=== PATIENT | female | born 1955 ===

== ENCOUNTER 2020-07-27 06:34 | Day surgery (SDC) | payer BC ==
[~2020-07-27 06:34] MED LIST: Lactated Ringers 1,000 ML IV SCH
[2020-07-27] MEDS ORDERED: Midazolam 1 MG/ML 2 ML SDV ONE (07:11)
[2020-07-27] MEDS ORDERED: Propofol 200 MG/20 ML SDV ONE (07:11)
--- NOTE | 2020-07-27 07:23 | PCM.PREANE ---
Preanesthetic Assessment - Anesthesia/Transfusion/Family Hx Anesthesia History: Prior Anesthesia Without Reaction Family History of Anesthesia Reaction: No Transfusion History: No Prior Transfusion(s) - Review of Systems General: No Symptoms Pulmonary: No Symptoms Cardiovascular: No Symptoms Gastrointestinal: No Symptoms Neurological: No Symptoms Other: Reports: None - Physical Assessment NPO Status Date: 07/27/20 NPO Status Time: 00:05 Vital Signs: Last Vital Signs Temp 97.2 F 07/27/20 06:51 Pulse 55 L 07/27/20 06:51 Resp 16 07/27/20 06:51 BP 134/67 07/27/20 06:51 Pulse Ox 98 07/27/20 06:51 Height: 5 ft 5 in Weight: 153 lb ASA Class: 3 Mental Status: Alert & Oriented x3 Airway Class: Mallampati = 2 Dentition: Reports: Normal Dentition, Dentures ROM/Head Extension: Full Lungs: Clear to Auscultation, Normal Respiratory Effort Cardiovascular: Regular Rate, Regular Rhythm - Allergies Allergies/Adverse Reactions: Allergies Allergy/AdvReac Type Severity Reaction Status Date / Time codeine Allergy Nausea and Verified 07/27/20 07:15 [From Tylenol-Codeine #3] Vomiting erythromycin base Allergy Nausea and Verified 07/27/20 07:15 Vomiting levofloxacin [From Levaquin] Allergy Nausea and Verified 07/27/20 07:15 Vomiting oxycodone Allergy Nausea and Verified 07/27/20 07:15 Vomiting Penicillins Allergy Rash Verified 07/27/20 07:15 - Anesthesia Plan Pre-Op Medication Ordered: None - Acknowledgements Anesthesia Type Planned: General Anesthesia Pt an Appropriate Candidate for the Planned Anesthesia: Yes Alternatives and Risks of Anesthesia Discussed w Pt/Guardian: Yes Pt/Guardian Understands and Agrees with Anesthesia Plan: Yes Additional Comments: npo after mn htn AR with 3 cardiac stents 2001 last plavix last monday no cp, sob, or palmer sophie tob none etoh nono now hx abuse upper and lower dentures par no questions PreAnesthesia Questionnaire HEENT History: Reports: Other (See Below) Other HEENT History: wears glasses, has upper and loser dentures Cardiovascular History: Reports: High Cholesterol, Hypertension, AR Other Cardiovascular History: AR in 2001- denies chest pain and SOB Respiratory History: Reports: None Gastrointestinal History: Reports: GERD, PUD Other Gastrointestinal History: hx gastric ulcer Genitourinary History: Reports: None [employer] History: Reports: Musculoskeletal History: Reports: Arthritis Other Musculoskeletal History: has arthritis in knees Neurological History: Reports: None Psychiatric History: Reports: Other (See Below) Other Psychiatric History: is Claustrophobic Endocrine/Metabolic History: Reports: Obesity/BMI 30+ Hematologic History: Reports: Anemia Immunologic History: Reports: None Oncologic (Cancer) History: Reports: None Dermatologic History: Reports: None - Past Surgical History Head Surgeries/Procedures: Reports: None Cardiovascular Surgical History: Reports: Coronary Artery Stent Other Cardiovascular Surgeries/Procedures: 3 stents placed approx. 1 year after AR GI Surgical History: Reports: Bariatric Procedure, Cholecystectomy, EGD Female Surgical History: Reports: Hysterectomy - SUBSTANCE USE Tobacco Use Status *Q: Former Tobacco User Tobacco Use Within Last Twelve Months: No Recreational Drug Use History: No - HOME MEDS Home Medications: Home Meds Calcium Carbonate/Vitamin D3 [Calcium 600-Vit D3 400 Tablet] 1 tab PO DAILY 02/24/16 [History] Cholecalciferol (Vitamin D3) [Vitamin D3] 2,000 units PO DAILY 02/24/16 [History] Clopidogrel Bisulfate [Plavix] 75 mg PO DAILY 02/24/16 [History] DULoxetine HCl [Cymbalta] 30 mg PO BID 02/24/16 [History] Enalapril Maleate 10 mg PO QAM 02/24/16 [History] Ferrous Sulfate [Iron] 325 mg PO DAILY 02/24/16 [History] Metoprolol Succinate 100 mg PO BID 02/24/16 [History] Simvastatin [Zocor] 40 mg PO DAILY 02/24/16 [History] Sucralfate [Carafate] 10 mg PO BID PRN 02/24/16 [History] amLODIPine Besylate [Amlodipine Besylate] 5 mg PO QAM 02/24/16 [History] Acetaminophen/Diphenhydramine [Acetaminophen Pm Caplet] 1 tab PO BEDTIME 07/24/20 [History] Omeprazole 20 mg PO DAILY 07/24/20 [History] - CURRENT (IN HOUSE) MEDS Current Meds: Current Medications Lactated Ringer's (Ringers, Lactated) 1,000 mls @ 125 mls/hr IV ASDIRECTED SCOUT Last Admin: 07/27/20 06:54 Dose: 125 mls/hr Documented by: Discontinued Medications Lactated Ringer's (Ringers, Lactated) 1,000 mls @ 125 mls/hr IV ASDIRECTED SCOUT Midazolam HCl (Midazolam 1 Mg/Ml 2 Ml Sdv) Confirm Administered Dose 2 mg .ROUTE .STK-MED ONE Stop: 07/27/20 07:12 Propofol (Propofol 200 Mg/20 Ml Sdv) Confirm Administered Dose 200 mg .ROUTE .STK-MED ONE Stop: 07/27/20 07:12
[2020-07-27] MEDS ORDERED: Lactated Ringers 1,000 ML IV SCH (08:30)
--- NOTE | 2020-07-27 08:32 | PCM.POSTAN ---
POST ANESTHESIA ASSESSMENT - MENTAL STATUS Mental Status: Alert, Oriented - VITAL SIGNS Vital Signs: Last Vital Signs Temp 97.2 F 07/27/20 06:51 Pulse 64 07/27/20 08:27 Resp 16 07/27/20 08:27 BP 140/70 07/27/20 08:27 Pulse Ox 98 07/27/20 08:27 - RESPIRATORY Respiratory Status: Respiratory Rate WNL, Airway Patent, O2 Saturation Stable - CARDIOVASCULAR CV Status: Pulse Rate WNL, Blood Pressure Stable - GASTROINTESTINAL GI Status: No Symptoms - POST OP HYDRATION Hydration Status: Adequate & Stable
--- NOTE | 2020-07-27 08:34 | PCM.OPNOTE ---
- General Post-Op/Procedure Note Date of Surgery/Procedure: 07/27/20 Operative Procedure(s): Esophagogastroduodenoscopy withh anastomotic biopsies Pre Op Diagnosis: Epigastric pain. Progressive heartburn. Unexplained weight loss. Post-Op Diagnosis: Mild chronic gastritis. Widely patent anastomosis. No esophageal stricture. Anesthesia Technique: MAC (ASA 3) Primary Surgeon: Vance Barragan Parking Lot Manager: Tabby Song Condition: Good Free Text/Narrative:: DICTATION 236339 CPT CODE 18408
[2020-07-27 08:39] VITALS: BP 152/68; PULSE 61
--- NOTE | 2020-07-27 08:56 | PCM48HPAN ---
Post Anesthesia Note - EVALUATION WITHIN 48HRS OF ANESTHETIC Vital Signs in Normal Range: Yes Patient Participated in Evaluation: Yes Respiratory Function Stable: Yes Airway Patent: Yes Cardiovascular Function Stable: Yes Hydration Status Stable: Yes Pain Control Satisfactory: Yes Nausea and Vomiting Control Satisfactory: Yes Mental Status Recovered: Yes Vital Signs: Last Vital Signs Temp 97.2 F 07/27/20 08:35 Pulse 61 07/27/20 08:35 Resp 14 07/27/20 08:35 BP 152/68 H 07/27/20 08:35 Pulse Ox 97 07/27/20 08:35
--- NOTE | 2020-07-27 09:34 | OR ---
SURGEON: Vance Barragan M.D. DATE OF PROCEDURE: 07/27/2020 OPERATION PERFORMED: Esophagogastroduodenoscopy with biopsy. PRIMARY SURGEON: Vance Barragan M.D. RADIO STATION MANAGER: optical assistant: DARIAN Levine student. ANESTHESIA: MAC. ASA CLASSIFICATION: III. PREOPERATIVE DIAGNOSES: Progressive epigastric pain with heartburn and unexplained weight loss. POSTOPERATIVE DIAGNOSES: Mild gastritis, widely patent anastomosis from her previous gastric bypass. DESCRIPTION OF PROCEDURE: The patient was taken to the endoscopy room and positioned on the endoscopy table in the supine position. Time-out was called for appropriate identification of the patient and procedure. Monitored anesthesia care was provided. The bite block was placed between the patient's teeth. The gastroscope was inserted through the bite block and advanced without difficulty through the esophagus into the gastric remnant and subsequently through the Santiago- en-Y anastomosis. The anastomosis was widely patent and showed no acute inflammatory changes or ulcerations. Anastomotic biopsies were obtained. The pouch was large enough that I was able to retroflex the gastroscope and reveal the GE junction, which showed no acute inflammatory changes or ulcerations. The gastroscope was then straightened and slowly withdrawn. The GE junction was well defined and showed no acute inflammatory changes. The esophagus itself demonstrated good contractility. No mid or proximal lesions were identified. Vocal cords were not visualized. The gastroscope was then removed with the patient having tolerated the procedure well. She was taken to recovery room in stable condition. REILLY / BRUCE /[id number] NARINDER
== END 2020-07-27 08:54 | disposition home or self-care (01) ==
LOC: MW.SDS 06:34
PROVIDERS: ATTEND Surgery
DX: K29.70 Gastritis, unspecified, without bleeding (principal); I10 Essential (primary) hypertension; F32.9 Major depressive disorder, single episode, unspecified; I25.10 Atherosclerotic heart disease of native coronary artery without angina pectoris; I25.2 Old myocardial infarction; E78.00 Pure hypercholesterolemia, unspecified; E66.9 Obesity, unspecified; Z98.0 Intestinal bypass and anastomosis status; Z88.0 Allergy status to penicillin; Z88.1 Allergy status to other antibiotic agents; Z88.5 Allergy status to narcotic agent; Z88.8 Allergy status to other drugs, medicaments and biological substances; Z79.899 Other long term (current) drug therapy; Z98.84 Bariatric surgery status; Z98.890 Other specified postprocedural states; Z90.49 Acquired absence of other specified parts of digestive tract; Z87.891 Personal history of nicotine dependence
CPT/HCPCS: 43239; 88305; J2250; J2704; J7120; 00731

== ENCOUNTER 2022-12-01 12:05 | Emergency (ER) | payer BC, MEDICARE ==
[2022-12-01] MEDS ORDERED: Lactated Ringers 1,000 ML IV SCH ×2 (12:30→13:00)
[2022-12-01 12:37] LABS: BASOPHILS PERCENT AUTO 0.4 % (0.0-1.5); EOSINOPHILS ABSOLUTE AUTO 0.4 K/uL (0.0-0.7); EOSINOPHILS PERCENT AUTO 3.4 % (0.0-7.0); HEMATOCRIT 48.3 % (36.0-46.0); HEMOGLOBIN 16.4 g/dL (12.0-16.0); LYMPHOCYTES ABSOLUTE AUTO 4.7 K/uL (0.6-2.4); LYMPHOCYTES PERCENT AUTO 42.2 % (16.0-40.0); MEAN CORPUSCULAR HEMOGLOBIN 29.5 pg (27.0-32.0); MONOCYTES ABSOLUTE AUTO 0.8 K/uL (0.0-0.8); MONOCYTES PERCENT AUTO 7.1 % (0.0-15.0); NEUTROPHILS ABSOLUTE AUTO 5.2 K/uL (1.4-5.7); NEUTROPHILS PERCENT AUTO 46.9 % (48.0-80.0); NRBC ABSOLUTE 0 K/uL; PLATELET COUNT,PLT 301 K/uL (150-400); RED BLOOD CELL COUNT 5.55 M/uL (4.30-5.90)
[2022-12-01 12:46] LABS: INR 1.09 (0.86-1.11)
[2022-12-01 12:59] LABS: A/G RATIO 1.2 (0.9-1.6); ALANINE AMINOTRANSFERASE,ALT 64 IU/L (14-63); ALBUMIN 4.4 g/dL (3.4-5.0); ALKALINE PHOSPHATASE 114 U/L (46-116); ASPARTATE AMNIOTRANSFERASE,AST 100 IU/L (15-37); BILIRUBIN TOTAL 0.4 mg/dL (0.2-1.0); BLOOD UREA NITROGEN,BUN 24 mg/dL (7.0-18.0); CALCIUM 9.5 mg/dL (8.5-10.1); CARBON DIOXIDE,CO2 21.1 mmol/L (21.0-32.0); CHLORIDE,CL 104 mmol/L (98-107); CREATININE 1.1 mg/dL (0.6-1.0); EST CRCL DRUG DOSING (CG) 44.03 mL/min; GLUCOSE RANDOM 145 mg/dL (74-106); PROTEIN TOTAL,TP 8.2 g/dL (6.4-8.2); SODIUM,NA 142 mmol/L (136-145)
[2022-12-01 13:03] LABS: ESTIMATED GFR 56 mL/min (>60); LIPASE > 250 U/L (16-77)
[2022-12-01] MEDS ORDERED: Iopamidol 755 Mg/ML 100 ML Bottle IVPUSH ONE (13:19)
[2022-12-01 13:36] LABS: LACTIC ACID 2.4 mmol/L (0.4-2.0)
[2022-12-01 15:42] LABS: APPEARANCE,URINE CLEAR; BILIRUBIN,URINE NEGATIVE (NEGATIVE); COLOR,URINE RED; GLUCOSE,URINE NEGATIVE (NEGATIVE); KETONES,URINE NEGATIVE (NEGATIVE); LEUKOCYTE ESTERASE,URINE NEGATIVE (NEGATIVE); NITRITE,URINE NEGATIVE (NEGATIVE); OCCULT BLOOD,URINE NEGATIVE (NEGATIVE); PROTEIN,URINE NEGATIVE (NEGATIVE); UROBILINOGEN,URINE 0.2 EU/dL (<2.0)
== END 2022-12-01 17:36 | disposition home or self-care (01) ==
LOC: MERGE 12:05 → MW.ED 12:05
DX: K85.90 Acute pancreatitis without necrosis or infection, unspecified (principal); R19.7 Diarrhea, unspecified; I25.2 Old myocardial infarction; I10 Essential (primary) hypertension; E78.00 Pure hypercholesterolemia, unspecified; E66.9 Obesity, unspecified; Z88.0 Allergy status to penicillin; Z88.1 Allergy status to other antibiotic agents; Z79.899 Other long term (current) drug therapy; Z79.01 Long term (current) use of anticoagulants; Z95.5 Presence of coronary angioplasty implant and graft
CPT/HCPCS: 36415; 74177; 80053; 81003; 83605; 83690; 84484; 85025; 85610; 87045; 87046; 87324; 87449; 87899; 93005; 96360; 96361; 99284; J7120; Q9967; 93010